=== PATIENT | female | born 1935 | race Caucasian/White ===

== ENCOUNTER 2017-05-31 13:04 | Emergency (ER) | payer OTHER ==
[~2017-05-31] VITALS: Ht 157.5 cm; Wt 70.0 kg
[~2017-05-31 13:04] MED LIST: APIX5 PO; DILT60TA PO; FLUO20TA20 PO; GABA300C3 PO; METO50TA PO; PRIL20CA PO; REST30CA PO; ULTR50TA PO
[2017-05-31 13:14] VITALS: BP 124/59; PULSE 89; RESP 14; TEMP 97.9; O2SAT 95
[2017-05-31 13:53] VITALS: BP 128/72; PULSE 80; RESP 18; TEMP 97.9; O2SAT 95
[2017-05-31] MEDS ORDERED: TEMA30CA PO (14:05)
[2017-05-31] MEDS ORDERED: APIX5TAB PO (14:05)
[2017-05-31] MEDS ORDERED: OMEP20TA PO (14:05)
[2017-05-31] MEDS ORDERED: GABA300C5 PO (14:05)
[2017-05-31] MEDS ORDERED: FLUO20CA12 PO (14:05)
[2017-05-31] MEDS ORDERED: AMLO5TAB2 PO (14:06)
[2017-05-31] MEDS ORDERED: SODIUM CHLORID 0.9% 500 ML INJ 500 ML IV ONE (14:15)
[2017-05-31] MEDS ORDERED: SODIUM CHLORIDE 0.9% FLUSH 10 ML FLUSH IVF PRN (14:15)
--- NOTE | 2017-05-31 14:21 | PD ---
HPI Chief Complaint: Medical Clearance Time Seen by Provider: 13:52 Travel History International Travel<30 days: No Contact w/Intl Traveler<30days: No Traveled to known affect area: No History of Present Illness HPI Patient is an 81-year-old female with history of hypertension, hyperlipidemia, A. fib, lung cancer who presents to emergency room with her family with complaints of generalized weakness. Patient's family reports that patient appeared weak, pale and short of breath at around lunchtime today. Reports the patient did not appear to be her normal self, reports that they brought patient to the firestation and patient was found to have a PVC. Reports that she was recently diagnosed with A. fib and is currently on anticoagulation (Eliquis) and is seeing Dr. Gunn. Patient reports that she started a new cancer medication, Optiva which she received on May 14 and May 28. Patient reports that she feels fine at this time, reports that she thinks that her symptoms could be due to her new cancer treatments. Reports "I feel fine now, there is nothing nothing wrong with me." Patient denies headache or dizziness, denies chest pain or shortness breath. Patient with no complaint at this time. PFSH Past Medical History Arthritis: Yes Anxiety: Yes Heart Rhythm Problems: No Cancer: Yes (RIGHT LUNG, L LUNG, LYMPH NODES) Cardiovascular Problems: Yes ("LEAKY VALVE") High Cholesterol: Yes Chemotherapy: Yes (LAST ONE MARCH 2015) Congestive Heart Failure: No COPD: Yes Diabetes: No Diminished Hearing: No Endocrine: No Gastrointestinal Disorders: Yes (ULCERS) GERD: Yes (GERD) Genitourinary: No Hepatitis: No Hiatal Hernia: No Hypertension: Yes Immune Disorder: No Implanted Vascular Access Dvce: No Musculoskeletal: Yes (ARTHRITIS- C3-C7 ) Neurologic: No Psychiatric: No Reproductive: No Respiratory: Yes (COPD) Immunizations Current: No Radiation Therapy: Yes (LAST ONE MAY 29, 2015) Thyroid Disease: No Ulcer: Yes Tetanus Vaccination: > 5 Years Influenza Vaccination: No Past Surgical History Abdominal Surgery: Yes (ISRA, APPENDIX) AICD: No Appendectomy: Yes Cholecystectomy: Yes Genitourinary Surgery: No Gynecologic Surgery: Yes (HYSTERECTOMY) Hysterectomy: Yes Joint Replacement: No Oral Surgery: Yes (T&A) Pacemaker: No Other Surgery: Yes Social History Alcohol Use: No Tobacco Use: No Substance Use: No Allergies-Medications (Allergen,Severity, Reaction): Coded Allergies: Enalapril (Verified Allergy, Severe, lip swells, 05/31/17) Levaquin (Unverified Allergy, Severe, Joint Pain, 05/31/17) Lisinopril (Unverified Allergy, Severe, Swelling, 05/31/17) HMG-CoA Reductase Inhibitors (Unverified Allergy, Intermediate, 05/31/17) elevated lfts Reported Meds & Prescriptions Reported Meds & Active Scripts Active Reported Amlodipine (Amlodipine Besylate) 5 Mg Tab 5 Mg PO DAILY Temazepam 30 Mg Cap 30 Mg PO HS PRN Omeprazole 20 Mg Tab 20 Mg PO HS Gabapentin 300 Mg Cap 300 Mg PO BID Fluoxetine (Fluoxetine HCl) 20 Mg Capsule 20 Mg PO DAILY Eliquis (Apixaban) 5 Mg Tab 5 Mg PO BID Review of Systems General / Constitutional: No: Fever Eyes: No: Visual changes HENT: No: Headaches Cardiovascular: No: Chest Pain or Discomfort Respiratory: No: Shortness of Breath Gastrointestinal: No: Abdominal Pain Genitourinary: No: Dysuria Musculoskeletal: No: Pain Skin: No Rash Neurologic: Positive: Weakness Psychiatric: No: Depression Endocrine: No: Polydipsia Hematologic/Lymphatic: No: Easy Bruising Physical Exam Narrative GENERAL: No acute distress, nontoxic SKIN: Focused skin assessment warm/dry. HEAD: Atraumatic. Normocephalic. EYES: Pupils equal and round. No scleral icterus. No injection or drainage. ENT: No nasal bleeding or discharge. Mucous membranes pink and moist. NECK: Trachea midline. No JVD. CARDIOVASCULAR: Regular rate and rhythm. No murmur appreciated. RESPIRATORY: No accessory muscle use. Clear to auscultation. Breath sounds equal bilaterally. GASTROINTESTINAL: Abdomen soft, non-tender, nondistended. Hepatic and splenic margins not palpable. MUSCULOSKELETAL: No obvious deformities. No clubbing. No cyanosis. No edema. NEUROLOGICAL: Awake and alert. No obvious cranial nerve deficits. Motor grossly within normal limits. Normal speech. PSYCHIATRIC: Appropriate mood and affect; insight and judgment normal. Data Data Last Documented VS Vital Signs Date Time Temp Pulse Resp B/P Pulse Ox O2 Delivery O2 Flow Rate FiO2 05/31/17 14:42 18 97 Room Air 05/31/17 13:59 80 05/31/17 13:53 97.9 128/72 Orders Electrocardiogram (05/31/17 14:10) B-Type Natriuretic Peptide (05/31/17 14:10) Ckmb (Isoenzyme) Profile (05/31/17 14:10) Complete Blood Count With Diff (05/31/17 14:10) Comprehensive Metabolic Panel (05/31/17 14:10) Magnesium (Mg) (05/31/17 14:10) Prothrombin Time / Inr (Pt) (05/31/17 14:10) Act Partial Throm Time (Ptt) (05/31/17 14:10) Troponin I (05/31/17 14:10) Ecg Monitoring (05/31/17 14:10) Iv Access Insert/Monitor (05/31/17 14:10) Oximetry (05/31/17 14:10) Sodium Chloride 0.9% Flush (Ns Flush) (05/31/17 14:15) Sodium Chlorid 0.9% 500 Ml Inj (Ns 500 M (05/31/17 14:15) CKMB (05/31/17 13:23) CKMB% (05/31/17 13:23) Urinalysis - C+S If Indicated (05/31/17 15:09) Labs Laboratory Tests Test 05/31/17 05/31/17 13:23 15:10 White Blood Count 3.5 TH/MM3 Red Blood Count 3.70 MIL/MM3 Hemoglobin 12.3 GM/DL Hematocrit 36.7 % Mean Corpuscular Volume 99.1 FL Mean Corpuscular Hemoglobin 33.2 PG Mean Corpuscular Hemoglobin 33.5 % Concent Red Cell Distribution Width 13.3 % Platelet Count 135 TH/MM3 Mean Platelet Volume 8.4 FL Neutrophils (%) (Auto) 73.6 % Lymphocytes (%) (Auto) 14.5 % Monocytes (%) (Auto) 9.2 % Eosinophils (%) (Auto) 2.0 % Basophils (%) (Auto) 0.7 % Neutrophils # (Auto) 2.6 TH/MM3 Lymphocytes # (Auto) 0.5 TH/MM3 Monocytes # (Auto) 0.3 TH/MM3 Eosinophils # (Auto) 0.1 TH/MM3 Basophils # (Auto) 0.0 TH/MM3 CBC Comment DIFF FINAL Differential Comment Prothrombin Time 11.4 SEC Prothromb Time International 1.0 RATIO Ratio Activated Partial 27.5 SEC Thromboplast Time Sodium Level 140 MEQ/L Potassium Level 3.8 MEQ/L Chloride Level 107 MEQ/L Carbon Dioxide Level 28.6 MEQ/L Anion Gap 4 MEQ/L Blood Urea Nitrogen 15 MG/DL Creatinine 0.93 MG/DL Estimat Glomerular Filtration 58 ML/MIN Rate Random Glucose 93 MG/DL Calcium Level 9.1 MG/DL Magnesium Level 2.2 MG/DL Total Bilirubin 0.5 MG/DL Aspartate Amino Transf 25 U/L (AST/SGOT) Alanine Aminotransferase 26 U/L (ALT/SGPT) Alkaline Phosphatase 148 U/L Total Creatine Kinase 107 U/L Creatine Kinase MB 1.7 NG/ML Troponin I LESS THAN 0.02 NG/ML B-Type Natriuretic Peptide 48 PG/ML Total Protein 7.3 GM/DL Albumin 3.7 GM/DL Urine Color YELLOW Urine Turbidity CLEAR Urine pH 7.0 Urine Specific [place] 1.013 Urine Protein NEG mg/dL Urine Glucose (UA) NEG mg/dL Urine Ketones NEG mg/dL Urine Occult Blood NEG Urine Nitrite NEG Urine Bilirubin NEG Urine Urobilinogen LESS THAN 2.0 MG/DL Urine Leukocyte Esterase NEG Urine RBC LESS THAN 1 /hpf Urine WBC 1 /hpf Urine Squamous Epithelial <1 /hpf Cells Urine Mucus FEW /lpf Microscopic Urinalysis Comment CULT NOT INDICATED MDM Medical Decision Making Medical Screen Exam Complete: Yes Emergency Medical Condition: Yes Interpretation(s) EKG at 1342 NSR at 83bpm, qt/qtc: 394/434, pvc's Vital Signs Date Time Temp Pulse Resp B/P Pulse Ox O2 Delivery O2 Flow Rate FiO2 05/31/17 13:59 80 18 05/31/17 13:53 97.9 80 18 128/72 95 05/31/17 13:14 97.9 89 14 124/59 95 Differential Diagnosis Differential includes arrhythmia, electrolyte abnormality, acs, uti Narrative Course Patient is an 81-year-old female who presents to emergency room with complaints of generalized weakness. Patient reports that she feels fine, reports that she is a completely asymptomatic. Patient's family reports that around noontime, patient appeared pale, short of breath and not her normal self. Family brought the patient to the emergency room for evaluation. Patient is well appearing with no neurological deficits at this time, no complaints. Plan to give iv fluids and check electrolytes. Vital Signs Date Time Temp Pulse Resp B/P Pulse Ox O2 Delivery O2 Flow Rate FiO2 05/31/17 14:42 18 97 Room Air 05/31/17 13:59 80 18 05/31/17 13:53 97.9 80 18 128/72 95 05/31/17 13:14 97.9 89 14 124/59 95 Laboratory Tests Test 05/31/17 13:23 White Blood Count 3.5 TH/MM3 (4.0-11.0) Red Blood Count 3.70 MIL/MM3 (4.00-5.30) Hemoglobin 12.3 GM/DL (11.6-15.3) Hematocrit 36.7 % (35.0-46.0) Mean Corpuscular Volume 99.1 FL (80.0-100.0) Mean Corpuscular Hemoglobin 33.2 PG (27.0-34.0) Mean Corpuscular Hemoglobin 33.5 % Concent (32.0-36.0) Red Cell Distribution Width 13.3 % (11.6-17.2) Platelet Count 135 TH/MM3 (150-450) Mean Platelet Volume 8.4 FL (7.0-11.0) Neutrophils (%) (Auto) 73.6 % (16.0-70.0) Lymphocytes (%) (Auto) 14.5 % (9.0-44.0) Monocytes (%) (Auto) 9.2 % (0.0-8.0) Eosinophils (%) (Auto) 2.0 % (0.0-4.0) Basophils (%) (Auto) 0.7 % (0.0-2.0) Neutrophils # (Auto) 2.6 TH/MM3 (1.8-7.7) Lymphocytes # (Auto) 0.5 TH/MM3 (1.0-4.8) Monocytes # (Auto) 0.3 TH/MM3 (0-0.9) Eosinophils # (Auto) 0.1 TH/MM3 (0-0.4) Basophils # (Auto) 0.0 TH/MM3 (0-0.2) CBC Comment DIFF FINAL Differential Comment Prothrombin Time 11.4 SEC (9.8-11.6) Prothromb Time International 1.0 RATIO Ratio Activated Partial 27.5 SEC Thromboplast Time (24.3-30.1) Sodium Level 140 MEQ/L (136-145) Potassium Level 3.8 MEQ/L (3.5-5.1) Chloride Level 107 MEQ/L (98-107) Carbon Dioxide Level 28.6 MEQ/L (21.0-32.0) Anion Gap 4 MEQ/L (5-15) Blood Urea Nitrogen 15 MG/DL (7-18) Creatinine 0.93 MG/DL (0.50-1.00) Estimat Glomerular Filtration 58 ML/MIN (>89) Rate Random Glucose 93 MG/DL (74-106) Calcium Level 9.1 MG/DL (8.5-10.1) Magnesium Level 2.2 MG/DL (1.5-2.5) Total Bilirubin 0.5 MG/DL (0.2-1.0) Aspartate Amino Transf 25 U/L (15-37) (AST/SGOT) Alanine Aminotransferase 26 U/L (10-53) (ALT/SGPT) Alkaline Phosphatase 148 U/L (45-117) Total Creatine Kinase 107 U/L (26-192) Creatine Kinase MB 1.7 NG/ML (0.5-3.6) Troponin I LESS THAN 0.02 NG/ML (0.02-0.05) B-Type Natriuretic Peptide 48 PG/ML (0-100) Total Protein 7.3 GM/DL (6.4-8.2) Albumin 3.7 GM/DL (3.4-5.0) Patient reevaluated, patient with no complaints, reports that she feels 100% fine. Patient request be discharged to home, she will return to emergency room if symptoms worsen or progress or return. She will return to the emergency room as needed. Diagnosis Primary Impression: Generalized weakness Patient Instructions: General Instructions Additional Instructions: Please provide a copy of patient's lab work at discharge Please follow up with your primary care doctor Return to ER as needed Return to ER if symptoms worsen or persist Disposition: 01 DISCHARGE HOME Condition: Stable Merlyn Laws DO May 31, 2017 14:21
[2017-05-31 14:42] VITALS: RESP 18; O2SAT 97
[2017-05-31 14:50] LABS: AUTOMATED NEUTROPHIL # 2.6 TH/MM3 (1.8-7.7); BASOPHIL % 0.7 % (0.0-2.0); EOSINOPHIL # 0.1 TH/MM3 (0-0.4); HEMATOCRIT 36.7 % (35.0-46.0); HEMO FLAGS DIFF FINAL; LYMPH % 14.5 % (9.0-44.0); LYMPHOCYTE # 0.5 TH/MM3 (1.0-4.8); MEAN CELL VOLUME 99.1 FL (80.0-100.0); MEAN CORPUSCULAR HEMOGLOBIN 33.2 PG (27.0-34.0); MEAN CORPUSCULAR HGB CONC 33.5 % (32.0-36.0); MONO % 9.2 % (0.0-8.0); NEUT % 73.6 % (16.0-70.0); PLATELET COUNT 135 TH/MM3 (150-450); RED CELL DISTRIBUTION WIDTH 13.3 % (11.6-17.2); WHITE BLOOD COUNT 3.5 TH/MM3 (4.0-11.0)
[2017-05-31 15:00] LABS: ANION GAP 4 MEQ/L (5-15); AST (GOT) 25 U/L (15-37); BICARBONATE 28.6 MEQ/L (21.0-32.0); BLOOD UREA NITROGEN 15 MG/DL (7-18); CHLORIDE 107 MEQ/L (98-107); GLOMERULAR FILTRATION RATE 58 ML/MIN (>89); MAGNESIUM 2.2 MG/DL (1.5-2.5); POTASSIUM 3.8 MEQ/L (3.5-5.1); SODIUM (NA) 140 MEQ/L (136-145)
[2017-05-31 15:01] LABS: ALT (GPT) 26 U/L (10-53); APTT (PATIENT) 27.5 SEC (24.3-30.1); PROTHROMBIN TIME - PATIENT 11.4 SEC (9.8-11.6)
[2017-05-31 15:04] LABS: ALKALINE PHOSPHATASE 148 U/L (45-117); CREATINE KINASE 107 U/L (26-192); TOTAL BILIRUBIN ADULT 0.5 MG/DL (0.2-1.0)
[2017-05-31 15:17] LABS: CKMB 1.7 NG/ML (0.5-3.6)
[2017-05-31 16:09] LABS: BLOOD, URINE NEG (NEG); COMMENT (UR) CULT NOT INDICATED; CULTURE IF INDICATED CULT NOT INDICATED; GLUCOSE,URINE NEG (NEG); KETONE, URINE NEG (NEG); MUCUS URINE FEW /lpf (OCC); NITRITE,URINE NEG (NEG); SQUAMOUS EPITHELIAL CELL URINE <1 /hpf (0-5); URINE COLOR YELLOW (YELLW/STRAW)
--- NOTE | 2017-06-01 14:08 | EKG ---
Date Performed: 05/31/2017 Time Performed: 13:42:07 PTAGE: 81 years EKG: Normal Sinus rhythm PVCs LVH by voltage PREVIOUS TRACING : 10/10/15 DOCTOR: Kermit Jones Interpretating Date/Time 06/01/2017 14:06:39
== END 2017-05-31 17:11 | disposition home or self-care (01) ==
LOC: NEPC 13:04
DX: R53.1 Weakness (principal); R06.02 Shortness of breath; I10 Essential (primary) hypertension; E78.5 Hyperlipidemia, unspecified; I48.91 Unspecified atrial fibrillation; C34.90 Malignant neoplasm of unspecified part of unspecified bronchus or lung; J44.9 Chronic obstructive pulmonary disease, unspecified; K21.9 Gastro-esophageal reflux disease without esophagitis; M13.88 Other specified arthritis, other site
CPT/HCPCS: 80053; 81001; 82550; 82552; 83735; 83880; 84484; 85025; 85610; 85730; 93005; 99284; J7040

== ENCOUNTER 2017-06-25 11:47 | Observation (INO) | payer MEDICARE, OTHER ==
[~2017-06-25] VITALS: Ht 165.1 cm; Wt 75.5 kg
[2017-06-25] VITALS (7 sets, daily range): BP systolic 95–141; BP diastolic 54–84; PULSE 73–141; RESP 16–20; TEMP 97.2–97.7; O2SAT 94–98
[~2017-06-25 11:47] MED LIST changes: +AMLO5TAB2 PO; -APIX5 PO; +APIX5TAB PO; -DILT60TA PO; +FLUO20CA12 PO; -FLUO20TA20 PO; -GABA300C3 PO; +GABA300C5 PO; -METO50TA PO; +OMEP20TA PO; -PRIL20CA PO; -REST30CA PO; +TEMA30CA PO; -ULTR50TA PO
[2017-06-25] MEDS ORDERED: SODIUM CHLOR 0.9% 1000 ML INJ 1,000 ML IV ONE (12:15)
--- NOTE | 2017-06-25 12:15 | PD ---
HPI Chief Complaint: Cardiac Complaint Time Seen by Provider: 11:55 Travel History International Travel<30 days: No Contact w/Intl Traveler<30days: No Traveled to known affect area: No History of Present Illness HPI The patient was seen and examined in the presence of the nurse. This patient has been having some chest heaviness. Severity is mild to moderate. Duration one day. No alleviating factors. She just felt weak and fatigued as well. She took her pulse and found that it was rapid and came to the ER. She has history of atrial fibrillation and is on Eliquis and has a pacer. She had a catheterization 10 years ago and required no stent or angioplasty. She has history of metastatic cancer and is getting chemotherapy. PFSH Past Medical History Arthritis: Yes Anxiety: Yes Heart Rhythm Problems: No Cancer: Yes (RIGHT LUNG, L LUNG, LYMPH NODES) Cardiovascular Problems: Yes ("LEAKY VALVE") High Cholesterol: Yes Chemotherapy: Yes Congestive Heart Failure: No COPD: Yes Diabetes: No Diminished Hearing: No Endocrine: No Gastrointestinal Disorders: Yes (ULCERS) GERD: Yes (GERD) Genitourinary: No Hepatitis: No Hiatal Hernia: No Hypertension: Yes Immune Disorder: No Implanted Vascular Access Dvce: No Musculoskeletal: Yes (ARTHRITIS- C3-C7 ) Neurologic: No Psychiatric: No Reproductive: No Respiratory: Yes (COPD) Immunizations Current: No Radiation Therapy: Yes (LAST ONE MAY 29, 2015) Thyroid Disease: No Ulcer: Yes Past Surgical History Abdominal Surgery: Yes (ISRA, APPENDIX) AICD: No Appendectomy: Yes Cholecystectomy: Yes Genitourinary Surgery: No Gynecologic Surgery: Yes (HYSTERECTOMY) Hysterectomy: Yes Joint Replacement: No Oral Surgery: Yes (T&A) Pacemaker: No Other Surgery: Yes Social History Alcohol Use: No Tobacco Use: No Substance Use: No Allergies-Medications (Allergen,Severity, Reaction): Coded Allergies: enalaprilat (Unverified Allergy, Severe, lip swells, 06/25/17) levofloxacin (Unverified Allergy, Severe, Joint Pain, 06/25/17) lisinopril (Unverified Allergy, Severe, Swelling, 06/25/17) amlodipine (Unverified Allergy, Intermediate, 06/25/17) elevated lfts atorvastatin (Unverified Allergy, Intermediate, 06/25/17) elevated lfts pravastatin (Unverified Allergy, Intermediate, 06/25/17) elevated lfts simvastatin (Unverified Allergy, Intermediate, 06/25/17) elevated lfts Reported Meds & Prescriptions Reported Meds & Active Scripts Active Reported Amlodipine (Amlodipine Besylate) 5 Mg Tab 5 Mg PO DAILY Temazepam 30 Mg Cap 30 Mg PO HS PRN Omeprazole 20 Mg Tab 20 Mg PO HS Gabapentin 300 Mg Cap 300 Mg PO BID Fluoxetine (Fluoxetine HCl) 20 Mg Capsule 20 Mg PO DAILY Eliquis (Apixaban) 5 Mg Tab 5 Mg PO BID Review of Systems General / Constitutional: No: Fever Eyes: No: Visual changes HENT: No: Headaches Cardiovascular: Positive: Chest Pain or Discomfort, Palpitations, Tachycardia Respiratory: No: Shortness of Breath Gastrointestinal: No: Abdominal Pain Genitourinary: No: Dysuria Musculoskeletal: Positive: Weakness, No: Pain Skin: No Rash Neurologic: Positive: Weakness Psychiatric: No: Depression Endocrine: No: Polydipsia Hematologic/Lymphatic: No: Easy Bruising Physical Exam Narrative GENERAL: Thin elderly well-developed patient in no apparent distress. SKIN: Focused skin assessment reveals no rash and nodules. Skin is Warm and dry. HEAD: Atraumatic. Normocephalic. EYES: Pupils equal and round. No scleral icterus. No injection or drainage. ENT: No nasal bleeding or discharge. Mucous membranes pink and moist. NECK: Trachea midline. No JVD. CARDIOVASCULAR: Regular rate and rhythm. Occasional ectopic beat. No murmur appreciated. RESPIRATORY: No accessory muscle use. Clear to auscultation. Breath sounds equal bilaterally. GASTROINTESTINAL: Abdomen soft, non-tender, nondistended. Hepatic and splenic margins not palpable. MUSCULOSKELETAL: No obvious deformities. No clubbing. No cyanosis. No edema. NEUROLOGICAL: Awake and alert. No obvious cranial nerve deficits. Motor grossly within normal limits. Normal speech. PSYCHIATRIC: Appropriate mood and affect; insight and judgment normal. Data Data Last Documented VS Vital Signs Date Time Temp Pulse Resp B/P Pulse Ox O2 Delivery O2 Flow Rate FiO2 06/25/17 12:10 135 22 96 Nasal Cannula 2 06/25/17 11:50 97.7 95/72 Orders Iv Access Insert/Monitor (06/25/17 12:07) Electrocardiogram (06/25/17 ) Chest, Single Ap (06/25/17 ) Complete Blood Count With Diff (06/25/17 12:07) Basic Metabolic Panel (Bmp) (06/25/17 12:07) Ckmb (Isoenzyme) Profile (06/25/17 12:07) Troponin I (06/25/17 12:07) Telephone Worker / Telemetry [id number].[email or web address] (06/25/17 12:07) Sodium Chlor 0.9% 1000 Ml Inj (Ns 1000 M (06/25/17 12:15) CKMB (06/25/17 12:10) CKMB% (06/25/17 12:10) Labs Laboratory Tests Test 06/25/17 12:10 White Blood Count 6.9 TH/MM3 Red Blood Count 3.94 MIL/MM3 Hemoglobin 13.0 GM/DL Hematocrit 37.8 % Mean Corpuscular Volume 95.9 FL Mean Corpuscular Hemoglobin 33.0 PG Mean Corpuscular Hemoglobin 34.4 % Concent Red Cell Distribution Width 12.1 % Platelet Count 190 TH/MM3 Mean Platelet Volume 8.5 FL Neutrophils (%) (Auto) 77.6 % Lymphocytes (%) (Auto) 11.4 % Monocytes (%) (Auto) 7.1 % Eosinophils (%) (Auto) 1.3 % Basophils (%) (Auto) 2.6 % Neutrophils # (Auto) 5.3 TH/MM3 Lymphocytes # (Auto) 0.8 TH/MM3 Monocytes # (Auto) 0.5 TH/MM3 Eosinophils # (Auto) 0.1 TH/MM3 Basophils # (Auto) 0.2 TH/MM3 CBC Comment DIFF FINAL Differential Comment Sodium Level 137 MEQ/L Potassium Level 3.6 MEQ/L Chloride Level 104 MEQ/L Carbon Dioxide Level 22.3 MEQ/L Anion Gap 11 MEQ/L Blood Urea Nitrogen 19 MG/DL Creatinine 1.10 MG/DL Estimat Glomerular Filtration 48 ML/MIN Rate Random Glucose 140 MG/DL Calcium Level 8.7 MG/DL Total Creatine Kinase 143 U/L Creatine Kinase MB 1.4 NG/ML Troponin I LESS THAN 0.02 NG/ML MDM Medical Decision Making Medical Screen Exam Complete: Yes Emergency Medical Condition: Yes Medical Record Reviewed: Yes Differential Diagnosis ACS, A. fib, SVT Narrative Course I have reviewed the patient's electronic medical record. Reviewed her oncologist note from Dr. Win from earlier this month IV placed I reviewed the EKG which shows a regular tachycardia at 139. PVC is present. I do not see P waves. However it is not irregularly irregular. I reviewed the chest x-ray which shows a reduction in the size of the known cancer mass Extended cardiac monitoring shows regular tachycardia with occasional PVC CBC reasonably normal Metabolic profile reasonably normal CK is normal Troponin is normal Patient is anticoagulated with Eliquis I gave her 1 L normal saline IV Patient presented with chest pain and hypotensive with arrhythmia, critically ill. Blood pressure in the 80s systolic. When her cardiac rhythm changed to sinus rhythm, her blood pressure improved to 105 systolic. She is now on a regular sinus rhythm in the 90s with clear P waves in front of the QRS I reviewed with the hospitalist will admit Critical Care Narrative Aggregate critical care time was 34 minutes. Time to perform other separately billable procedures was not included in the critical care time. My time did not include minutes spent treating any other patients simultaneously or on activities that did not directly contribute to the patient's treatment. The services I provided to this patient were to treat and/or prevent clinically significant deterioration that could result in: Cardiac arrhythmia, cardiogenic shock, cardiopulmonary arrest I provided critical care services requiring my management, as noted below: Chart data review, documentation time, medication orders and management, vital sign assessments/reviewing monitor data, ordering and reviewing lab tests, ordering and interpreting/reviewing x-rays and diagnostic studies, care of the patient and discussion of the patient with the admitting physicians. Diagnosis Primary Impression: Chest pain in adult Additional Impressions: Arrhythmia, atrial Hypotension Qualified Code: I95.9 - Hypotension, unspecified hypotension type Admitting Information Admitting Physician Requests: Tariq Reyes MD Jun 25, 2017 12:15
--- NOTE | 2017-06-25 12:22 | RADRPT ---
EXAM DATE/TIME: 06/25/2017 12:16 [facility] COMPARISON: CHEST SINGLE AP, October 10, 2015, 17:51. INDICATIONS : Chest pain MEDICAL HISTORY : Carcinoma, lung. SURGICAL HISTORY : Pacemaker. ENCOUNTER: Initial ACUITY: 1 day PAIN SCORE: 2/10 LOCATION: Right chest FINDINGS: Pacemaker implanted on the left. Less consolidative changes are seen on the right. The heart is min imally enlarged. There is mild interstitial edema. There is no pneumothorax. CONCLUSION: Interval improvement in the consolidative mass right base known to be lung cancer. Jaleel Fry MD FACR on June 25, 2017 at 12:19 Board Certified Radiologist. This report was verified electronically.
[2017-06-25 12:30] LABS: AUTOMATED NEUTROPHIL # 5.3 TH/MM3 (1.8-7.7); BASOPHIL # 0.2 TH/MM3 (0-0.2); BASOPHIL % 2.6 % (0.0-2.0); EOSINOPHIL # 0.1 TH/MM3 (0-0.4); EOSINOPHIL % 1.3 % (0.0-4.0); HEMATOCRIT 37.8 % (35.0-46.0); LYMPH % 11.4 % (9.0-44.0); LYMPHOCYTE # 0.8 TH/MM3 (1.0-4.8); MEAN CELL VOLUME 95.9 FL (80.0-100.0); MEAN CORPUSCULAR HGB CONC 34.4 % (32.0-36.0); MONO % 7.1 % (0.0-8.0); NEUT % 77.6 % (16.0-70.0); PLATELET COUNT 190 TH/MM3 (150-450); RED BLOOD COUNT 3.94 MIL/MM3 (4.00-5.30); RED CELL DISTRIBUTION WIDTH 12.1 % (11.6-17.2); WHITE BLOOD COUNT 6.9 TH/MM3 (4.0-11.0)
[2017-06-25 12:39] LABS: HEMO FLAGS DIFF FINAL
[2017-06-25 12:42] LABS: CHLORIDE 104 MEQ/L (98-107); POTASSIUM 3.6 MEQ/L (3.5-5.1); SODIUM (NA) 137 MEQ/L (136-145)
[2017-06-25 12:45] LABS: ANION GAP 11 MEQ/L (5-15); BICARBONATE 22.3 MEQ/L (21.0-32.0); BLOOD UREA NITROGEN 19 MG/DL (7-18)
[2017-06-25 12:48] LABS: GLOMERULAR FILTRATION RATE 48 ML/MIN (>89)
[2017-06-25 12:51] LABS: CREATINE KINASE 143 U/L (26-192)
[2017-06-25 13:03] LABS: CKMB 1.4 NG/ML (0.5-3.6)
--- NOTE | 2017-06-25 14:00 | HHI.HP ---
[facility] Hammad Felix Do, MD Admission Diagnosis chest pain with arrhythmia, resolved hypotension Diagnoses: (1) Arrhythmia, atrial Diagnosis: Principal (2) Hypotension Diagnosis: Principal Chief Complaint: Fast heart rate, weakness, fatigue Travel History International Travel<30 Days: No Contact w/Intl Traveler <30 Da: No Traveled to Known Affected Are: No History of Present Illness Written by Tariq Torres, acting as scribe for Dr. Garcia on 06/25/17 at 13: 45. 81-year-old female with known history of non-small cell carcinoma the lung, atrial fibrillation, hypertension, hyperlipidemia, chronic obstructive pulmonary disease, gastroesophageal reflux, who presented to hospital because of fast heart rate. Patient does have recent diagnosis earlier this year of lung cancer and has been undergoing radiation and chemotherapy. She underwent 30 treatments of radiation therapy, she did chemotherapy which she was not tolerant due to bone marrow suppression. She just started more chemotherapy with Nivolumab injections every 2 weeks. Patient got an injection 2 weeks ago and with the last week she has been feeling rather fatigued, weak and muscle cramps and aches so she called her oncologist to see if they can delay the next injection because she was having multiple symptoms from the injection. Today patient felt more weak that she had of the last few days so she thought it might be her oxygenation so she put her pulse oximeter on her finger and noticed her heart rate 150. This was persistent even though she was sitting down. The patient put a blood pressure And Noticed That Her Heart Rate Was Still 150. Because her heart rate was elevated she did call her oncologist and asked her if the medication that she is taking will cause elevated heart rate. Patient does have the printed out from the medication which does indicate fast heart rate is a side effect of medication. She tried to call her airplane tester office Dr. Childers, or she was told that she is out of town, so the patient came to the hospital for evaluation. Patient had EKG done which did show atrial tachycardia with rate in the 150s. She could feel her heart racing and had a weird feeling in her chest. She did not have any actual pain, diaphoresis , nausea, vomiting, shortness of breath, dyspnea. During the time of the patient had the tachycardia she did have blood pressure with systolic blood pressure in the 80s. The patient subsequently has changed into normal sinus rhythm with PVCs and a controlled heart rate. Her blood pressure has improved. Patient no longer experiencing any weakness, fatigue. It was recommended by the ER physician the patient be admitted for further evaluation and management. Review of Systems Constitutional: COMPLAINS OF: Fatigue Cardiovascular: COMPLAINS OF: Palpitations Except as stated in HPI: all other systems reviewed are Neg Past Family Social History Past Medical History Hypertension Hyperlipidemia Atrial fibrillation Non-small cell carcinoma of the lung Chronic obstructive pulmonary disease Gastroesophageal reflux Past Surgical History Cataract surgery Tonsillectomy Pacemaker Cholecystectomy Appendectomy Hysterectomy Lung biopsy Reported Medications Reported Meds & Active Scripts Active Reported Amlodipine (Amlodipine Besylate) 5 Mg Tab 5 Mg PO DAILY Temazepam 30 Mg Cap 30 Mg PO HS PRN Omeprazole 20 Mg Tab 20 Mg PO HS Gabapentin 300 Mg Cap 300 Mg PO BID Fluoxetine (Fluoxetine HCl) 20 Mg Capsule 20 Mg PO DAILY Eliquis (Apixaban) 5 Mg Tab 5 Mg PO BID Allergies: Coded Allergies: enalaprilat (Unverified Allergy, Severe, lip swells, 06/25/17) levofloxacin (Unverified Allergy, Severe, Joint Pain, 06/25/17) lisinopril (Unverified Allergy, Severe, Swelling, 06/25/17) atorvastatin (Unverified Allergy, Intermediate, 06/25/17) elevated lfts pravastatin (Unverified Allergy, Intermediate, 06/25/17) elevated lfts simvastatin (Unverified Allergy, Intermediate, 06/25/17) elevated lfts Family History Reviewed is significant for mother living to age 98 and was in good health. Father lived to age 76 and had esophageal cancer. Social History Patient quit smoking 25 years ago prior to that she smoked one pack a cigarettes a day since she was 17 years old. Patient denies any alcohol or illicit drugs Physical Exam Vital Signs Vital Signs Date Time Temp Pulse Resp B/P Pulse Ox O2 Delivery O2 Flow Rate FiO2 06/25/17 13:00 123 16 102/72 98 06/25/17 12:10 135 22 96 Nasal Cannula 2 06/25/17 11:50 97.7 141 20 95/72 96 Physical Exam GENERAL: Well-developed, well-nourished, in no acute distress. alert and orientated HEENT: Head is normocephalic without any lesions or masses noted. Facial features are symmetric. Eyes: Pupils equal round reactive to light. Extraocular muscles are intact. Conjunctivae were clear. Oropharyngeal: Pharynx without any erythema edema. Tongue is midline without deviation. Buccal mucosa is moist without any masses or lesions NECK: Supple without any masses. Trachea midline no deviation. No JVD, no bruits are appreciated CARDIAC: Irregular rhythm, regular rate. S1/S2 are heard. No murmurs gallops or rubs. LUNGS: Clear to auscultation bilaterally. No wheeze, rhonchi or rales. No use of accessory muscles on inspiration or expiration. ABDOMEN: Soft, nontender. Nondistended. Bowel sounds heard in all 4 quadrants. No organomegaly or masses. Negative rebound, negative guarding EXTREMITIES: No edema, pulses are equal bilaterally. No cyanosis or clubbing NEUROLOGY: Mood and affect appear appropriate. Cranial nerves II through XII grossly intact. Muscle strength 5/5 in upper and lower extremities bilaterally. Deep tendon reflexes are 2+ in upper and lower extremities bilaterally. Laboratory Laboratory Tests Test 06/25/17 12:10 White Blood Count 6.9 Red Blood Count 3.94 Hemoglobin 13.0 Hematocrit 37.8 Mean Corpuscular Volume 95.9 Mean Corpuscular Hemoglobin 33.0 Mean Corpuscular Hemoglobin 34.4 Concent Red Cell Distribution Width 12.1 Platelet Count 190 Mean Platelet Volume 8.5 Neutrophils (%) (Auto) 77.6 Lymphocytes (%) (Auto) 11.4 Monocytes (%) (Auto) 7.1 Eosinophils (%) (Auto) 1.3 Basophils (%) (Auto) 2.6 Neutrophils # (Auto) 5.3 Lymphocytes # (Auto) 0.8 Monocytes # (Auto) 0.5 Eosinophils # (Auto) 0.1 Basophils # (Auto) 0.2 CBC Comment DIFF FINAL Differential Comment Sodium Level 137 Potassium Level 3.6 Chloride Level 104 Carbon Dioxide Level 22.3 Anion Gap 11 Blood Urea Nitrogen 19 Creatinine 1.10 Estimat Glomerular Filtration 48 Rate Random Glucose 140 Calcium Level 8.7 Total Creatine Kinase 143 Creatine Kinase MB 1.4 Troponin I LESS THAN 0.02 Result Diagram: 06/25/17 1210 06/25/17 1210 Imaging Last Impressions Chest X-Ray 06/25/17 0000 Signed Impressions: Service Date/Time: Sunday, June 25, 2017 12:16 - CONCLUSION: Interval improvement in the consolidative mass right base known to be lung cancer. Jaleel Fry MD FACR Assessment and Plan Problem List: (1) Arrhythmia, atrial ICD Code: I49.8 Status: Acute Plan: Patient with known history of atrial fibrillation, patient's heart rate has returned to normal. Symptoms have improved. Will continue monitor patient on telemetry (2) Generalized weakness ICD Code: R53.1 Status: Acute Plan: Likely secondary to the patient's atrial tachycardia, however could be due to mild dehydration, medication side effect from chemotherapy. we'll get physical therapy evaluation. (3) Acute renal failure superimposed on stage 2 chronic kidney disease ICD Code: N17.9 Status: Acute Plan: Patient status post 1 L of fluid, will monitor renal function. Assessment and Plan DVT prevention with sequential compression devices Code Status No intubation, patient is agreeable to CPR and defibrillation Discussed Condition With Patient, ER physician, family at bedside Physician Certification 2 Midnight Certification Type: Admission for Inpatient Services Order for Inpatient Services 3 The services are ordered in accordance with Medicare regulations or non- Medicare payer requirements, as applicable. In the case of services not specified as inpatient-only, they are appropriately provided as inpatient services in accordance with the 2-midnight benchmark. Estimated LOS (days): 3 3 days is the estimated time the patient will need to remain in the hospital, assuming treatment plan goals are met and no additional complications. Post-Hospital Plan: Home Health Medical Decision Making Impression and Plan The exam, history, and the medical decision-making described in the above note were completed with the assistance of the mid-level provider. I reviewed and agree with the findings presented. I attest that I had a [id number] encounter with the patient on the same day, and personally performed and documented my assessment and findings in the medical record. This note was transcribed by june Torres. I, Dr. Denisse Garcia personally performed the history, physical exam, and medical decision making; and confirmed the accuracy of the information in the transcribed note. Authenticated by Dr. Denisse Garcia on 06/25/17 at 15:04. Problem Qualifiers (1) Hypotension: Qualified Code: I95.9 - Hypotension, unspecified hypotension type Tariq Torres Jun 25, 2017 14:00 Denisse Garcia MD Jun 25, 2017 15:05
[2017-06-25] MEDS ORDERED: ACETAMINOPHEN 325 MG TAB PO PRN (14:15)
[2017-06-25] MEDS ORDERED: TEMAZEPAM 15 MG CAP PO PRN (14:15)
[2017-06-25] MEDS: SODIUM CHLOR 0.9% 1000 ML INJ 1,000 ML IV SCH ×2 (14:43→21:49)
[2017-06-25] MEDS ORDERED: PANTOPRAZOLE SOD 20 MG DELAYED RELEASE TAB PO SCH (21:00)
[2017-06-25] MEDS: GABAPENTIN 300 MG CAP PO SCH (21:47)
[2017-06-25] MEDS: APIXABAN 5 MG TABLET PO SCH (21:47)
[2017-06-26 01:37] VITALS: BP 115/68; PULSE 89; RESP 18; TEMP 97.9; O2SAT 94
[2017-06-26 04:50] VITALS: BP 137/62; PULSE 73; RESP 18; TEMP 97.3; O2SAT 94
[2017-06-26 07:10] LABS: AUTOMATED NEUTROPHIL # 3.4 TH/MM3 (1.8-7.7); BASOPHIL % 0.7 % (0.0-2.0); EOSINOPHIL # 0.1 TH/MM3 (0-0.4); EOSINOPHIL % 3.1 % (0.0-4.0); HEMO FLAGS DIFF FINAL; LYMPH % 17.4 % (9.0-44.0); LYMPHOCYTE # 0.8 TH/MM3 (1.0-4.8); MEAN CELL VOLUME 96.1 FL (80.0-100.0); MEAN CORPUSCULAR HEMOGLOBIN 33.3 PG (27.0-34.0); MEAN CORPUSCULAR HGB CONC 34.6 % (32.0-36.0); MONO % 9.4 % (0.0-8.0); NEUT % 69.4 % (16.0-70.0); PLATELET COUNT 167 TH/MM3 (150-450); RED BLOOD COUNT 3.85 MIL/MM3 (4.00-5.30); RED CELL DISTRIBUTION WIDTH 12.2 % (11.6-17.2); WHITE BLOOD COUNT 4.7 TH/MM3 (4.0-11.0)
[2017-06-26 07:25] LABS: POTASSIUM 3.8 MEQ/L (3.5-5.1)
[2017-06-26 07:35] LABS: BICARBONATE 25.5 MEQ/L (21.0-32.0)
[2017-06-26 08:14] VITALS: PULSE 95
[2017-06-26 08:16] VITALS: BP 144/82; PULSE 87; RESP 19; TEMP 96.8; O2SAT 96
[2017-06-26] MEDS ORDERED: amLODIPine BESYLATE 5 MG TAB PO SCH (09:00)
[2017-06-26] MEDS: GABAPENTIN 300 MG CAP PO SCH (09:00)
[2017-06-26] MEDS ORDERED: FLUoxetine HCL 20 MG CAP PO SCH (09:00)
[2017-06-26] MEDS: APIXABAN 5 MG TABLET PO SCH (09:00)
--- NOTE | 2017-06-26 10:00 | HHI.DCPOC ---
Discharge Care Plan Diagnosis: (1) Arrhythmia, atrial (2) Hypotension Goals to Promote Your Health * To prevent worsening of your condition and complications * To maintain your health at the optimal level Directions to Meet Your Goals Take your medications as prescribed Follow your dietary instruction Follow activity as directed Keep your appointments as scheduled Take your immunizations and boosters as scheduled If your symptoms worsen call your PCP, if no PCP go to Urgent Care Center or Emergency Room Smoking is Dangerous to Your Health. Avoid second hand smoke Call the 24-hour hour crisis hotline for domestic abuse at Denisse Garcia MD Jun 26, 2017 10:00
--- NOTE | 2017-06-26 10:03 | HHI.DS ---
Discharge Summary Admission Date Jun 25, 2017 at 13:24 Discharge Date: Jun 26, 2017 Admitting Diagnosis chest pain with arrhythmia, resolved hypotension (1) Arrhythmia, atrial ICD Code: I49.8 (2) Generalized weakness ICD Code: R53.1 (3) Acute renal failure superimposed on stage 2 chronic kidney disease ICD Code: N17.9 Procedures none Brief History - From Admission Written by Tariq Torres, acting as scribe for Dr. Garcia on 06/25/17 at 13: 45. 81-year-old female with known history of non-small cell carcinoma the lung, atrial fibrillation, hypertension, hyperlipidemia, chronic obstructive pulmonary disease, gastroesophageal reflux, who presented to hospital because of fast heart rate. Patient does have recent diagnosis earlier this year of lung cancer and has been undergoing radiation and chemotherapy. She underwent 30 treatments of radiation therapy, she did chemotherapy which she was not tolerant due to bone marrow suppression. She just started more chemotherapy with Nivolumab injections every 2 weeks. Patient got an injection 2 weeks ago and with the last week she has been feeling rather fatigued, weak and muscle cramps and aches so she called her oncologist to see if they can delay the next injection because she was having multiple symptoms from the injection. Today patient felt more weak that she had of the last few days so she thought it might be her oxygenation so she put her pulse oximeter on her finger and noticed her heart rate 150. This was persistent even though she was sitting down. The patient put a blood pressure And Noticed That Her Heart Rate Was Still 150. Because her heart rate was elevated she did call her oncologist and asked her if the medication that she is taking will cause elevated heart rate. Patient does have the printed out from the medication which does indicate fast heart rate is a side effect of medication. She tried to call her art gilder office Dr. Childers, or she was told that she is out of town, so the patient came to the hospital for evaluation. Patient had EKG done which did show atrial tachycardia with rate in the 150s. She could feel her heart racing and had a weird feeling in her chest. She did not have any actual pain, diaphoresis , nausea, vomiting, shortness of breath, dyspnea. During the time of the patient had the tachycardia she did have blood pressure with systolic blood pressure in the 80s. The patient subsequently has changed into normal sinus rhythm with PVCs and a controlled heart rate. Her blood pressure has improved. Patient no longer experiencing any weakness, fatigue. It was recommended by the ER physician the patient be admitted for further evaluation and management. CBC/BMP: 06/26/17 0626 06/26/17 0626 Significant Findings Laboratory Tests Test 06/25/17 06/26/17 12:10 06:26 Red Blood Count 3.94 MIL/MM3 3.85 MIL/MM3 (4.00-5.30) (4.00-5.30) Neutrophils (%) (Auto) 77.6 % (16.0-70.0) Basophils (%) (Auto) 2.6 % (0.0-2.0) Lymphocytes # (Auto) 0.8 TH/MM3 0.8 TH/MM3 (1.0-4.8) (1.0-4.8) Blood Urea Nitrogen 19 MG/DL (7-18) Creatinine 1.10 MG/DL (0.50-1.00) Estimat Glomerular Filtration 48 ML/MIN (>89) 78 ML/MIN (>89) Rate Random Glucose 140 MG/DL (74-106) Troponin I LESS THAN 0.02 NG/ML (0.02-0.05) Monocytes (%) (Auto) 9.4 % (0.0-8.0) Chloride Level 108 MEQ/L (98-107) PE at Discharge GENERAL: This is a well-nourished, well-developed patient, in no apparent distress. CARDIOVASCULAR:pacer, Regular rate and sinus with pvcs without murmurs, gallops , or rubs. RESPIRATORY: Clear to auscultation. Breath sounds equal bilaterally. No wheezes , rales, or rhonchi. GASTROINTESTINAL: Abdomen soft, non-tender, nondistended. Normal active bowel sounds MUSCULOSKELETAL: Extremities without clubbing, cyanosis, or edema. NEURO: Alert & Oriented x4 to person, place, time, situation. Moves all ext x4 Pt update on day of discharge Patient seen today in follow-up for hypotension with arrhythmia. Her issues are resolved. Patient now in sinus rhythm with occasional PVCs on telemetry. No new events overnight no further hypotension. Patient is concerned about the chemotherapy and her decreased quality of life namely due to weakness and arrhythmia with symptoms. Patient would like to pursue palliative options which she will discuss with her oncologist. Medications have continued. Patient discharge was discussed with her and she is agreeable Hospital Course The patient was monitored overnight on cardiac telemetry for an atrial tachyarrhythmia with associated hypotension. This resolved spontaneously prior to her admission. Patient was kept in observation status. No further episodes occurred. The patient's medications from home were continued. She was discharged home to follow-up with her art gilder Pt Condition on Discharge: Good Discharge Disposition: Discharge Home Discharge Time: <= 30 minutes Discharge Instructions DIET: Follow Instructions for: As Tolerated, No Restrictions Activities you can perform: Regular-No Restrictions Follow up Referrals: Cardiology - 1 Week Continued Medications: Amlodipine (Amlodipine) 5 Mg Tab 5 MG PO DAILY Blood Pressure Management #30 Ref 0 TAB Apixaban (Eliquis) 5 Mg Tab 5 MG PO BID Blood Clot Prevention #60 Ref 0 TAB Fluoxetine (Fluoxetine) 20 Mg Capsule 20 MG PO DAILY #30 Ref 0 CAP Gabapentin (Gabapentin) 300 Mg Cap 300 MG PO BID #60 Ref 0 CAP Omeprazole (Omeprazole) 20 Mg Tab 20 MG PO HS #30 Ref 0 TAB Temazepam (Temazepam) 30 Mg Cap 30 MG PO HS PRN INSOMNIA #30 Ref 0 CAP Denisse Garcia MD Jun 26, 2017 10:03
--- NOTE | 2017-06-26 16:01 | EKG ---
Date Performed: 06/25/2017 Time Performed: 12:00:48 PTAGE: 81 years EKG: ECTOPIC ATRIAL TACHYCARDIA WITH OCCASIONAL ECTOPIC PREMATURE COMPLEXES MARKED LEFT AXIS DEV IATION LEFT VENTRICULAR HYPERTROPHY AND ST-T CHANGE ABNORMAL ECG PREVIOUS TRACING : 05/31/2017 13.42 Compared to previous tracing, the supraventicular tachycard ia with rate of 139 is new. Clinical correlation and follow tracing recommended. DOCTOR: Alberto Vazquez Interpretating Date/Time 06/26/2017 16:00:38
== END 2017-06-26 11:03 | disposition home or self-care (01) ==
LOC: PHED 11:47 → PHEDA 13:24 → INTOOBSV 13:24 → PH3B 15:14
PROVIDERS: ADMIT Hospitalist; ATTEND Hospitalist
DX: R07.89 Other chest pain (principal); I47.1 Supraventricular tachycardia; I48.91 Unspecified atrial fibrillation; J44.9 Chronic obstructive pulmonary disease, unspecified; K21.9 Gastro-esophageal reflux disease without esophagitis; C34.90 Malignant neoplasm of unspecified part of unspecified bronchus or lung; I12.9 Hypertensive chronic kidney disease with stage 1 through stage 4 chronic kidney disease, or unspecified chronic kidney disease; N18.2 Chronic kidney disease, stage 2 (mild); Z95.0 Presence of cardiac pacemaker; N17.9 Acute kidney failure, unspecified; E78.00 Pure hypercholesterolemia, unspecified; Z87.891 Personal history of nicotine dependence; Z79.899 Other long term (current) drug therapy
CPT/HCPCS: 71010; 80048; 82550; 82552; 84484; 85025; 93005; 96360; 96361; 99291; G0378; J7030

== ENCOUNTER → 2017-12-22 | Outpatient (CLI) | payer OTHER ==
[~2017-12-22] MED LIST changes: -OMEP20TA PO; +OMEP20TA93 PO
--- NOTE | 2017-12-24 08:48 | RSPPFT ---
DATE OF PROCEDURE: 12/22/17 COMMENTS: Spirometry demonstrates an FVC of 1.7 predicted 2.5, FEV1 of 1.2 predicted 1.8, FEV1/FVC ratio at 72% predicted 80%.Lung volumes are decreased with TLC at 3.0 predicted 5.2. DLCO is 51% of predicted but normal when corrected for alveolar volume. IMPRESSION: On the basis of the above, patient has a restrictive lung defect with decreased DLCO
== END ==
LOC: PHRSP 09:32
PROVIDERS: ATTEND Family Medicine
DX: J44.9 Chronic obstructive pulmonary disease, unspecified (principal)
CPT/HCPCS: 36600; 82805; 94060; 94618; 94726; 94729

== ENCOUNTER 2018-04-22 13:26 | Emergency (ER) | payer OTHER ==
[~2018-04-22] VITALS: Ht 165.1 cm; Wt 72.0 kg
[2018-04-22 13:38] VITALS: BP 127/60; PULSE 63; TEMP 97; O2SAT 97
[2018-04-22 14:01] VITALS: BP 135/64; PULSE 73; RESP 18; O2SAT 96
[2018-04-22] MEDS ORDERED: SYMB80AE INH (14:18)
[2018-04-22] MEDS ORDERED: DILT60CA PO (14:18)
[2018-04-22] MEDS ORDERED: PRED10 PO (14:18)
[2018-04-22] MEDS ORDERED: ALBU0.63 NEB (14:19)
--- NOTE | 2018-04-22 14:35 | PD ---
HPI Chief Complaint: Respiratory Symptoms Time Seen by Provider: 14:06 Travel History International Travel<30 days: No Contact w/Intl Traveler<30days: No Traveled to known affect area: No History of Present Illness HPI 82-year-old female with history of hypertension, COPD, A. fib, metastatic lung cancer followed by Dr. Win, presents to the emergency department for evaluation. Patient reports an increase in shortness of breath. She states she is unable to walk even short distances without significant shortness of breath. She does have back pain when she lies flat states it is more difficult to breathe. Patient states she is no longer undergoing chemo or radiation. She has had her last treatments several weeks ago. She states that she had a CT done outpatient April 20 that showed a significant increase in the size of her right pleural effusion with enlarging right lower lobe mass. Part of the enlargement could be due to compressed lung surrounding of the patient's or additional lung mass. There is also worsening of the parenchymal process right upper lobe since the prior examination. This may be of inflammatory change. There is also multiple metastatic lung nodules otherwise not significantly changed. Patient has stopped her Eliquis 2 days ago to undergo thoracentesis outpatient, however, for reasons be under control, patient was unable to get this completed. She contacted Dr. Win and due to her worsening shortness of breath, inability to do minimal activity without significant shortness of breath, and risk of being off her Eliquis secondary to A. fib, patient was advised to come to the emergency department. PFSH Past Medical History Arthritis: Yes Atrial Fibrillation: Yes Anxiety: Yes Depression: Yes Heart Rhythm Problems: Yes (A FIB) Cancer: Yes (LUNG) Cardiac Catheterization: Yes (PACEMAKER) Cardiovascular Problems: Yes ("Leaky valve") High Cholesterol: Yes Chemotherapy: Yes (STOPPED 2 YEARS AGO) Chest Pain: Yes Congestive Heart Failure: No Cirrhosis: Yes COPD: Yes Diabetes: No Diminished Hearing: No Endocrine: No Gastrointestinal Disorders: Yes (ULCERS) GERD: Yes Genitourinary: No Hepatitis: No Hiatal Hernia: No Hypertension: Yes Immune Disorder: No Implanted Vascular Access Dvce: No Musculoskeletal: Yes (ARTHRITIS- C3-C7 ) Neurologic: No Psychiatric: No Reproductive: No Respiratory: Yes (COPD) Immunizations Current: No Radiation Therapy: Yes (30 TREATMENTS) Shingles: Yes Thyroid Disease: No Ulcer: Yes Influenza Vaccination: No ?: Not Menopausal: Yes Past Surgical History Abdominal Surgery: Yes (ISRA, APPENDIX) AICD: No Appendectomy: Yes Cardiac Surgery: Yes (PACEMAKER) Cholecystectomy: Yes Genitourinary Surgery: No Gynecologic Surgery: Yes (PARTIAL HYSTERECTOMY) Hysterectomy: Yes Joint Replacement: No Oral Surgery: Yes Pacemaker: Yes Tonsillectomy: Yes Other Surgery: Yes Family History Family Hypercholesterolemia: Yes Social History Alcohol Use: No Tobacco Use: No Substance Use: No Allergies-Medications (Allergen,Severity, Reaction): Coded Allergies: enalaprilat (Verified Allergy, Severe, lip swells, 04/22/18) levofloxacin (Verified Allergy, Severe, Joint Pain, 04/22/18) lisinopril (Verified Allergy, Severe, Swelling, 04/22/18) atorvastatin (Verified Allergy, Intermediate, 04/22/18) elevated lfts pravastatin (Verified Allergy, Intermediate, 04/22/18) elevated lfts simvastatin (Verified Allergy, Intermediate, 04/22/18) elevated lfts Reported Meds & Prescriptions Reported Meds & Active Scripts Active Reported Albuterol Neb (Albuterol Sulfate) 0.63 Mg/3 Ml Neb Unknown Dose NEB Q4HR NEB PRN Prednisone 10 Mg Tab 10 Mg PO DAILY Symbicort Inh (Budesonide/Formoterol Fumarate) 80-4.5 Mcg/Act Aero 2 Puff INH Q12HR Diltiazem ER 12 HR (Diltiazem HCl) 60 Mg Caper Unknown Dose PO BID Temazepam 30 Mg Cap 30 Mg PO HS PRN Omeprazole 20 Mg Tab 20 Mg PO HS Gabapentin 300 Mg Cap 300 Mg PO BID Fluoxetine (Fluoxetine HCl) 20 Mg Capsule 20 Mg PO DAILY Eliquis (Apixaban) 5 Mg Tab 5 Mg PO BID Review of Systems Except as stated in HPI: all other systems reviewed are Neg Physical Exam Narrative GENERAL: Well-nourished female patient, ambulatory no acute distress SKIN: Focused skin assessment warm/dry. HEAD: Atraumatic. Normocephalic. EYES: Pupils equal and round. No scleral icterus. No injection or drainage. ENT: No nasal bleeding or discharge. Mucous membranes pink and moist. NECK: Trachea midline. No JVD. CARDIOVASCULAR: Regular rate and rhythm. No murmur appreciated. RESPIRATORY: No accessory muscle use. Diminished to absent right lower lobe to auscultation. Fine scattered rhonchi, clear upper lobes. Breath sounds equal bilaterally. GASTROINTESTINAL: Abdomen soft, non-tender, nondistended. Hepatic and splenic margins not palpable. MUSCULOSKELETAL: No obvious deformities. No clubbing. No cyanosis. No edema. NEUROLOGICAL: Awake and alert. No obvious cranial nerve deficits. Motor grossly within normal limits. Normal speech. PSYCHIATRIC: Appropriate mood and affect; insight and judgment normal. Data Data Last Documented VS Vital Signs Date Time Temp Pulse Resp B/P (MAP) Pulse Ox O2 Delivery O2 Flow Rate FiO2 04/22/18 19:18 70 17 96 Room Air 04/22/18 19:17 142/86 (104) 04/22/18 13:38 97.0 Orders Orders Iv Access Insert/Monitor (04/22/18 14:25) Complete Blood Count With Diff (04/22/18 14:25) Basic Metabolic Panel (Bmp) (04/22/18 14:25) Coag Profile (04/22/18 14:25) Us Guided Thoracentesis (04/22/18 ) Consent (04/22/18 14:46) Vital Signs (Adult) Q15MX3,Q8H (04/22/18 14:46) Diet Npo (04/22/18 Dinner) Chest, Expiration Only (04/22/18 ) Morphine Inj (Morphine Inj) (04/22/18 18:30) Ondansetron Odt (Zofran Odt) (04/22/18 18:30) Ed Discharge Order (04/22/18 19:20) Labs Laboratory Tests Test 04/22/18 15:10 White Blood Count 9.3 TH/MM3 Red Blood Count 3.67 MIL/MM3 Hemoglobin 11.7 GM/DL Hematocrit 35.1 % Mean Corpuscular Volume 95.7 FL Mean Corpuscular Hemoglobin 32.0 PG Mean Corpuscular Hemoglobin Concent 33.4 % Red Cell Distribution Width 14.4 % Platelet Count 196 TH/MM3 Mean Platelet Volume 8.5 FL Neutrophils (%) (Auto) 89.8 % Lymphocytes (%) (Auto) 2.6 % Monocytes (%) (Auto) 7.1 % Eosinophils (%) (Auto) 0.0 % Basophils (%) (Auto) 0.5 % Neutrophils # (Auto) 8.4 TH/MM3 Lymphocytes # (Auto) 0.2 TH/MM3 Monocytes # (Auto) 0.7 TH/MM3 Eosinophils # (Auto) 0.0 TH/MM3 Basophils # (Auto) 0.0 TH/MM3 CBC Comment DIFF FINAL Differential Comment Prothrombin Time 10.7 SEC Prothromb Time International Ratio 1.1 RATIO Activated Partial Thromboplast Time 24.5 SEC Blood Urea Nitrogen 15 MG/DL Creatinine 1.01 MG/DL Random Glucose 178 MG/DL Calcium Level 8.7 MG/DL Sodium Level 141 MEQ/L Potassium Level 3.4 MEQ/L Chloride Level 106 MEQ/L Carbon Dioxide Level 25.9 MEQ/L Anion Gap 9 MEQ/L Estimat Glomerular Filtration Rate 53 ML/MIN MDM Medical Decision Making Medical Screen Exam Complete: Yes Emergency Medical Condition: Yes Medical Record Reviewed: Yes Differential Diagnosis Pleural effusion versus metastatic disease versus pulmonary edema Narrative Course 82-year-old female presents to emergency department for evaluation. Patient has CT findings significant for increased size in the right pleural effusion. This was done at [facility] on April 20, 2018. Besides shortness of breath with minimal activity, patient has no other symptoms to report. I discussed the patient with Dr. Win, patient's oncologist. He requests therapeutic thoracentesis and then discharged home to resume her Eliquis. Laboratory Tests Test 04/22/18 15:10 White Blood Count 9.3 TH/MM3 Red Blood Count 3.67 MIL/MM3 Hemoglobin 11.7 GM/DL Hematocrit 35.1 % Mean Corpuscular Volume 95.7 FL Mean Corpuscular Hemoglobin 32.0 PG Mean Corpuscular Hemoglobin Concent 33.4 % Red Cell Distribution Width 14.4 % Platelet Count 196 TH/MM3 Mean Platelet Volume 8.5 FL Neutrophils (%) (Auto) 89.8 % Lymphocytes (%) (Auto) 2.6 % Monocytes (%) (Auto) 7.1 % Eosinophils (%) (Auto) 0.0 % Basophils (%) (Auto) 0.5 % Neutrophils # (Auto) 8.4 TH/MM3 Lymphocytes # (Auto) 0.2 TH/MM3 Monocytes # (Auto) 0.7 TH/MM3 Eosinophils # (Auto) 0.0 TH/MM3 Basophils # (Auto) 0.0 TH/MM3 CBC Comment DIFF FINAL Differential Comment Prothrombin Time 10.7 SEC Prothromb Time International Ratio 1.1 RATIO Activated Partial Thromboplast Time 24.5 SEC Blood Urea Nitrogen 15 MG/DL Creatinine 1.01 MG/DL Random Glucose 178 MG/DL Calcium Level 8.7 MG/DL Sodium Level 141 MEQ/L Potassium Level 3.4 MEQ/L Chloride Level 106 MEQ/L Carbon Dioxide Level 25.9 MEQ/L Anion Gap 9 MEQ/L Estimat Glomerular Filtration Rate 53 ML/MIN Vital Signs Date Time Temp Pulse Resp B/P (MAP) Pulse Ox O2 Delivery O2 Flow Rate FiO2 04/22/18 14:01 73 18 135/64 (87) 96 Room Air 04/22/18 13:38 97.0 63 127/60 (82) 97 1820 patient is returned from ultrasound. She is reporting a pain with inspiration. She will be treated for this. 1920 patient is ready to be discharged. Her vital signs have remained stable. She is pain-free at this time. She is encouraged to follow-up with Dr. Win and to return immediately with acute worsening symptoms. Diagnosis Primary Impression: Dyspnea Qualified Codes: R06.02 - Shortness of breath Additional Impression: Pleural effusion on right Referrals: Alberto Win MD Patient Instructions: General Instructions, Thoracentesis (DC) Additional Instructions: Follow all post thoracentesis instructions Follow-up with Dr. Win Return immediately with acute worsening symptoms Med/Other Pt SpecificInfo: No Change to Meds Disposition: 01 DISCHARGE HOME Condition: Stable Theresa Rodriguez Apr 22, 2018 14:35
[2018-04-22 15:42] LABS: AUTOMATED NEUTROPHIL # 8.4 TH/MM3 (1.8-7.7); BASOPHIL % 0.5 % (0.0-2.0); HEMATOCRIT 35.1 % (35.0-46.0); HEMOGLOBIN 11.7 GM/DL (11.6-15.3); LYMPH % 2.6 % (9.0-44.0); LYMPHOCYTE # 0.2 TH/MM3 (1.0-4.8); MEAN CELL VOLUME 95.7 FL (80.0-100.0); MEAN CORPUSCULAR HGB CONC 33.4 % (32.0-36.0); MEAN PLATELET VOLUME 8.5 FL (7.0-11.0); MONO % 7.1 % (0.0-8.0); MONOCYTE # 0.7 TH/MM3 (0-0.9); NEUT % 89.8 % (16.0-70.0); PLATELET COUNT 196 TH/MM3 (150-450); RED BLOOD COUNT 3.67 MIL/MM3 (4.00-5.30); RED CELL DISTRIBUTION WIDTH 14.4 % (11.6-17.2); WHITE BLOOD COUNT 9.3 TH/MM3 (4.0-11.0)
[2018-04-22 15:51] LABS: INTERNATIONAL NORMALIZED RATIO 1.1 RATIO; PROTHROMBIN TIME - PATIENT 10.7 SEC (9.8-11.6)
[2018-04-22 16:24] LABS: BICARBONATE 25.9 MEQ/L (21.0-32.0); CALCIUM 8.7 MG/DL (8.5-10.1); CREATININE 1.01 MG/DL (0.50-1.00)
--- NOTE | 2018-04-22 18:22 | RADRPT ---
EXAM DATE: 04/22/2018 6:14 PM EDT AGE/SEX: 82 years / Female INDICATIONS: Status post right sided thoracentesis. CLINICAL DATA: This is the patient's subsequent encounter. Patient reports that signs and symptoms h ave been present for 1 day and indicates a pain score of 3/10. MEDICAL/SURGICAL HISTORY: Carcinoma, lung. Pacemaker. COMPARISON: [facility], CHEST SINGLE AP, 06/25/2017. . FINDINGS: Patient is status post right-sided thoracentesis. There is consolidation at the right lung base with small residual right effusion. Questionable nodular densities present in both lungs. CONCLUSION: Status post right thoracentesis without pneumothorax. Small residual right effusion with dense consol idation at the right lung base. Electronically signed by: Ezra Gutierrez MD 04/22/2018 6:21 PM EDT
[2018-04-22 18:23] VITALS: BP 142/63; PULSE 72; RESP 18; O2SAT 97
[2018-04-22] MEDS ORDERED: MORPHINE SULFATE 4 MG/ML INJ IV PUSH ONE (18:30)
[2018-04-22] MEDS ORDERED: ONDANSETRON ODT 4 MG TAB PO ONE (18:30)
[2018-04-22 19:17] VITALS: BP 142/86; PULSE 79; RESP 17; O2SAT 96
[2018-04-22] MEDS ORDERED: LIDOCAINE HCL 1% PF 30 ML VIAL ONE (22:03)
--- NOTE | 2018-04-25 09:03 | RADRPT ---
EXAM DATE: 04/22/2018 6:10 PM EDT AGE/SEX: 82 years / Female INDICATIONS: Pleural effusion. CLINICAL DATA: This is the patient's initial encounter. Patient reports that signs and symptoms have been present for 4 - 6 days and indicates a pain score of 3/10. MEDICAL/SURGICAL HISTORY: Hypertension. Hypercholesterolemia. Lung cancer. Pleural effusion. A -fib. COPD. GERD. Pacemaker. Cholecystectomy. Appendectomy. Hysterectomy. Right knee repair. Xra y done in US room 1 COMPARISON: No prior exams available for comparison. FLUID: Total volume of 1,000 cc of cloudy, yellow fluid was removed. Fluid was discarded. Thoracentesis was therapeutic only. . . TECHNIQUE: Ultrasound guidance for thoracentesis. Thoracentesis. The risks, benefits, and alternatives to ultrasound guided thoracentesis were explained to the patien t in lay simple terms, including the risk of bleeding and infection. Written and verbal informed con sent was obtained. Appropriate area for right thoracentesis was marked under ultrasound guidance with the patient in the upright position. Overlying skin was prepped and draped in the usual sterile fashion and with local anesthetic, a dermatotomy was made with an 11 blade scalpel. A 6 Croatian thoracentesis catheter was placed in the pleural space and fluid was removed. Catheter was then removed and a sterile dressing applied. There were no immediate complications. The patient tolerated the procedure well and the lef t the ultrasound suite in stable condition. Chest radiograph is to be obtained. CONCLUSION: 1. Uncomplicated right thoracentesis. Electronically signed by: Hieu Lao MD 04/25/2018 9:02 AM EDT
== END 2018-04-22 19:54 | disposition home or self-care (01) ==
LOC: NEPC 13:26
DX: R06.02 Shortness of breath (principal); J90 Pleural effusion, not elsewhere classified; J44.9 Chronic obstructive pulmonary disease, unspecified; I10 Essential (primary) hypertension; E78.00 Pure hypercholesterolemia, unspecified; K21.9 Gastro-esophageal reflux disease without esophagitis; I48.91 Unspecified atrial fibrillation; Z79.01 Long term (current) use of anticoagulants; Z85.118 Personal history of other malignant neoplasm of bronchus and lung
CPT/HCPCS: 32555; 71045; 80048; 85025; 85610; 85730; 96374; 99285; C1729; J2270